=== PATIENT | male | born 1970 | race Hispanic/Latino ===

== ENCOUNTER 2023-10-06 05:37 | Day surgery (SDC) | payer BC ==
[2023-10-04 11:21] LABS: BASOPHILS # (AUTO) 0.05 K/uL (0.00-0.20); BASOPHILS % (AUTO) 0.8 % (0.0-5.0); EOSINOPHILS # (AUTO) 0.14 K/uL (0.00-0.70); EOSINOPHILS % (AUTO) 2.3 % (0.0-8.0); IMMATURE GRANULOCYTE ABSOLUTE 0.02 K/uL (0-1); LYMPHOCYTES # (AUTO) 1.5 K/uL (1.0-4.8); LYMPHOCYTES % (AUTO) 24.5 % (21.0-51.0); MEAN CORPUSCULAR HEMOGLOBIN 27.5 pg (27.0-33.0); MEAN CORPUSCULAR HGB CONC 33.2 g/dL (32.0-36.0); MEAN CORPUSCULAR VOLUME 82.9 fL (79-99); MONOCYTES # (AUTO) 0.8 K/uL (0.1-1.0); MONOCYTES % (AUTO) 13.1 % (3.0-13.0); NEUTROPHILS # (AUTO) 3.6 K/uL (1.8-7.7); PLATELET COUNT (AUTO) 222 K/uL (130-400); RED BLOOD CELL COUNT(AUTO) 5.31 MIL/uL (4.50-6.20); RED CELL DISTRIBUTION WIDTH 14.1 % (11.0-15.5); WHITE BLOOD COUNT (AUTO) 6.1 K/uL (4.8-10.8)
[2023-10-04 11:26] VITALS: BP 135/88; PULSE 64; RESP 19
[2023-10-04 11:28] LABS: CREATININE 0.9 mg/dL (0.5-1.3); POTASSIUM 4.1 mmol/L (3.5-5.1)
[2023-10-06] VITALS (9 sets, daily range): BP systolic 126–152; BP diastolic 77–97; PULSE 61–70; RESP 14–17
[~2023-10-06] VITALS: Ht 170.2 cm; Wt 98.8 kg
[~2023-10-06 05:37] MED LIST: APIX5TAB PO; DILT360T14 PO; LOSA25TA41 PO
[2023-10-06 07:27] LABS: INR 1.01 (0.85-1.15); PROTHROMBIN TIME 10.9 SEC (9.6-11.6)
[2023-10-06 07:28] LABS: PARTIAL THROMBOPLASTIN TIME 25.2 SEC (26.3-35.5)
[2023-10-06] MEDS: 0.9%NACL 1000ML 1,000 ML IV ONE (07:35)
[2023-10-06] MEDS ORDERED: LIDOCAINE HCL 1% MDV 50ML VIAL ONE (07:40)
[2023-10-06] MEDS ORDERED: MEPERIDINE-PF 25 MG/ML SYG ONE ×3 (07:41→08:41)
[2023-10-06] MEDS ORDERED: HEPARIN 10,000 UNIT/10ML (1,000 UNIT/ML) VIAL ONE (07:41)
[2023-10-06] MEDS ORDERED: MIDAZOLAM HCL 1 MG/ML 2ML VIAL ONE ×3 (07:41→08:41)
== END 2023-10-06 13:00 | disposition home or self-care (01) ==
LOC: DAH 05:37
PROVIDERS: ATTEND Internal Medicine Cardiovascular Disease
DX: I48.3 Typical atrial flutter (principal); I10 Essential (primary) hypertension; Z79.01 Long term (current) use of anticoagulants; Z98.890 Other specified postprocedural states; Z79.899 Other long term (current) drug therapy
CPT/HCPCS: 80048; 85025; 36415 ×2; 93005; 93653; 85610; 85730; C1894 ×2; C1732 ×2; C1893; A4649 ×2; J7030; J1644 ×2; J2250 ×3; J2175 ×3; J3490; A4215; A4222; A4221; A4663; A4216; A4606; A4223 ×3; 99156; 99157

== ENCOUNTER 2024-08-22 06:49 | Day surgery (SDC) | payer BC ==
[2024-08-09 12:36] LABS: BASOPHILS # (AUTO) 0.05 K/uL (0.00-0.20); BASOPHILS % (AUTO) 0.6 % (0.0-5.0); EOSINOPHILS # (AUTO) 0.21 K/uL (0.00-0.70); EOSINOPHILS % (AUTO) 2.4 % (0.0-8.0); IMMATURE GRANULOCYTE ABSOLUTE 0.03 K/uL (0-1); LYMPHOCYTES # (AUTO) 1.7 K/uL (1.0-4.8); LYMPHOCYTES % (AUTO) 18.7 % (21.0-51.0); MEAN CORPUSCULAR HEMOGLOBIN 26.7 pg (27.0-33.0); MEAN CORPUSCULAR HGB CONC 32.6 g/dL (32.0-36.0); MEAN CORPUSCULAR VOLUME 81.9 fL (79-99); MONOCYTES # (AUTO) 0.8 K/uL (0.1-1.0); MONOCYTES % (AUTO) 8.6 % (3.0-13.0); NEUTROPHILS # (AUTO) 6.1 K/uL (1.8-7.7); NEUTROPHILS % (AUTO) 69.4 % (40.0-77.0); PLATELET COUNT (AUTO) 218 K/uL (130-400); RED BLOOD CELL COUNT(AUTO) 5.25 MIL/uL (4.50-6.20); RED CELL DISTRIBUTION WIDTH 14.3 % (11.0-15.5); WHITE BLOOD COUNT (AUTO) 8.8 K/uL (4.8-10.8)
[2024-08-09 12:46] LABS: CREATININE 0.9 mg/dL (0.5-1.3); POTASSIUM 4.1 mmol/L (3.5-5.1)
[2024-08-09 12:53] LABS: INR 1.05 (0.85-1.15); PROTHROMBIN TIME 11.1 SEC (9.6-11.6)
[2024-08-09 12:54] LABS: PARTIAL THROMBOPLASTIN TIME 27.2 SEC (26.3-35.5)
[2024-08-09 13:31] VITALS: BP 135/83; PULSE 71; RESP 18; TEMP 97.3
--- NOTE | 2024-08-10 11:42 | EKG ---
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
[2024-08-22] VITALS (7 sets, daily range): BP systolic 126–136; BP diastolic 78–90; PULSE 62–66; RESP 10–18; TEMP 97.4–97.7
[~2024-08-22] VITALS: Ht 172.7 cm; Wt 93.2 kg
[~2024-08-22 06:49] MED LIST changes: +DILT-116 PO; -DILT360T14 PO; +ERGO500093 PO; +LEVO5TAB13 PO; +occuvite PO; +ozempic SQ
[2024-08-22] MEDS ORDERED: LIDOCAINE HCL 1% MDV 50ML VIAL ONE (08:39)
[2024-08-22] MEDS ORDERED: HEParin-NS 1,000 UNIT/500 ML 1,000 ML IV ONE (08:39)
[2024-08-22] MEDS ORDERED: BUPIvacaine/PF 0.25% 30ML VIAL IJ ONE (08:39)
[2024-08-22] MEDS ORDERED: SODIUM BICARB 50MEQ 50ML VIAL 50 ML ONE (08:42)
[2024-08-22] MEDS ORDERED: LIDOCAINE HCL 400MG/20ML VIAL ONE (08:43)
[2024-08-22] MEDS ORDERED: HEParin 10,000 UNIT/10ML (1,000 UNIT/ML) VIAL ONE (08:49)
[2024-08-22] MEDS ORDERED: FENTanyl CITRate PF 50 MCG/1 ML 2ML VIAL ONE ×2 (08:51→09:16)
[2024-08-22] MEDS ORDERED: MIDAZOLAM HCL 1 MG/ML 2ML VIAL ONE ×4 (08:52→09:28)
[2024-08-22] MEDS ORDERED: DRON400T7 PO (10:51)
[2024-08-22] MEDS: DRONEDARONE HYDROCHLORIDE 400 MG TABLET PO ONE (12:21)
== END 2024-08-22 12:50 | disposition home or self-care (01) ==
LOC: DAH 06:49
PROVIDERS: ATTEND Internal Medicine Cardiovascular Disease
DX: I48.19 Other persistent atrial fibrillation (principal); I10 Essential (primary) hypertension; I48.92 Unspecified atrial flutter; Z20.822 Contact with and (suspected) exposure to COVID-19; Z79.01 Long term (current) use of anticoagulants; Z79.899 Other long term (current) drug therapy; Z98.890 Other specified postprocedural states
CPT/HCPCS: 80048; 85025; 85610; 85730; 36415; 93005; 93653; 85347; 82948; 99157 ×5; 99156; C1894 ×2; C1732 ×2; C1893; A4649 ×2; C1760 ×2; J3010 ×2; J3490 ×3; J0665; J1644 ×2; J2250 ×4; A4215; A4222; A4221; A4663; A4216; A4606; A4223 ×3

== ENCOUNTER 2024-09-12 09:36 | Day surgery (SDC) | payer BC ==
[2024-09-09 09:40] LABS: BASOPHILS # (AUTO) 0.06 K/uL (0.00-0.20); BASOPHILS % (AUTO) 0.7 % (0.0-5.0); EOSINOPHILS % (AUTO) 2.2 % (0.0-8.0); HEMATOCRIT 41.8 % (42-54); IMMATURE GRANULOCYTE ABSOLUTE 0.02 K/uL (0-1); LYMPHOCYTES # (AUTO) 2.1 K/uL (1.0-4.8); LYMPHOCYTES % (AUTO) 23.1 % (21.0-51.0); MEAN CORPUSCULAR HEMOGLOBIN 26.7 pg (27.0-33.0); MEAN CORPUSCULAR HGB CONC 32.8 g/dL (32.0-36.0); MEAN CORPUSCULAR VOLUME 81.5 fL (79-99); MONOCYTES # (AUTO) 1.1 K/uL (0.1-1.0); MONOCYTES % (AUTO) 11.8 % (3.0-13.0); NEUTROPHILS # (AUTO) 5.5 K/uL (1.8-7.7); PLATELET COUNT (AUTO) 237 K/uL (130-400); RED BLOOD CELL COUNT(AUTO) 5.13 MIL/uL (4.50-6.20); RED CELL DISTRIBUTION WIDTH 14.2 % (11.0-15.5); WHITE BLOOD COUNT (AUTO) 8.9 K/uL (4.8-10.8)
[2024-09-09 09:46] VITALS: BP 119/70; PULSE 64; RESP 17; TEMP 97.9
[2024-09-09 09:47] LABS: CREATININE 0.9 mg/dL (0.5-1.3); POTASSIUM 4.8 mmol/L (3.5-5.1)
[~2024-09-12] VITALS: Ht 172.7 cm; Wt 92.7 kg
[~2024-09-12 09:36] MED LIST changes: +DRON400T7 PO; -ERGO500093 PO; -LEVO5TAB13 PO; -LOSA25TA41 PO; +[UNRECOGNIZED DRUG - CODE] PO; +[UNRECOGNIZED DRUG - OTHER] PO; -occuvite PO
--- NOTE | 2024-09-12 10:10 | NUR ---
EKG SHOWING NSR DR. JAIME SAW EKG STATED OK TO DISCHARGE HOME CONTINUE ALL MEDICATIONS AND TO FOLLOW UP WITH HIM IN 2 WEEKS. BOTH PT AND DAUGHTER AT BEDSIDE MADE AWARE OF NORMAL EKG FINDINGS, FOLLOW UP AND TO CONTINUE ALL MEDICATIONS. BOTH PT AND DAUGHTER GIVEN EXAMPLES OF SIGNS OF POSSIBLE A FIB FLUTTER; SOB FATIGUE, PALPITATIONS, WEAKNESS ETC. Addendum: 09/13/24 at 1625 by RACHELLE VOSS RN RN CARDIOVERSION CANCELLED-SR
--- NOTE | 2024-09-12 10:15 | EKG ---
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
== END 2024-09-12 10:20 | disposition home or self-care (01) ==
LOC: DAH 09:36
PROVIDERS: ATTEND Internal Medicine Cardiovascular Disease
DX: I48.19 Other persistent atrial fibrillation (principal); Z53.8 Procedure and treatment not carried out for other reasons; I48.92 Unspecified atrial flutter; Z79.899 Other long term (current) drug therapy; Z98.890 Other specified postprocedural states
CPT/HCPCS: 36415; 80048; 82948; 85025; 93005